=== PATIENT | male | born 1960 | race Caucasian/White ===

== ENCOUNTER 2023-09-09 13:58 | Emergency (ER) | payer MEDICAID, OTHER ==
[~2023-09-09] VITALS: Ht 190.5 cm; Wt 117.9 kg
[2023-09-09 14:36] LABS: Basophils # (auto) 0 10 ^3/uL (0-0.2); Basophils % (auto) 0.2 % (0.0-2.0); Eosinophils # (auto) 0.2 10 ^3/uL (0-0.8); Eosinophils % (auto) 1.5 % (0.0-7.0); Hematocrit 45.4 % (41.0-53.0); Lymphocytes # (auto) 3.1 10 ^3/uL (0.4-5.4); Mean Corpuscular Hemoglobin 30.2 pg (28.0-32.0); Mean Corpuscular Hgb Conc. 35.2 g/dL (32.0-36.0); Mean Corpuscular Volume 85.8 fL (80.0-100.0); Monocytes % (auto) 5.9 % (0.0-12.0); Neutrophils # (auto) 11.9 10 ^3/uL (1.6-8.6); Neutrophils % (auto) 73.4 % (37.0-80.0); Nucleated Red Blood Cells % 0.1 %; Red Blood Cells 5.29 10^6/uL (4.5-5.90); White Blood Cell 16.2 10^3/uL (4.4-10.8)
[2023-09-09 14:44] LABS: Urine Bacteria FEW /hpf (None Seen); Urine Blood 3+ /uL (Negative); Urine Clarity Ex.Turbid (Clear); Urine Color Brown (Yellow); Urine Protein, UAD 2+ (Negative); Urine Specific Gravity 1.031 (1.001-1.035); Urine Urobilinogen Normal (Negative); Urine WBC 242 /hpf (0 - 3); Urine pH 5.5 (5.0-9.0)
[2023-09-09 15:00] LABS: Alanine Aminotransferase 39 U/L (7-40); Albumin 4.8 g/dL (3.2-4.8); Alkaline Phosphatase 84 U/L (46-116); Anion Gap 7 (5-15); Aspartate Aminotransferase 17 U/L (13-40); BUN/Creatinine Ratio 16.8 (10.0-20.0); Bilirubin, Total 0.7 mg/dL (0.2-1.0); Blood Urea Nitrogen 21 mg/dL (9-23); Calcium 10.4 mg/dL (8.7-10.4); Carbon Dioxide 25 mmol/L (20-30); Chloride 107 mmol/L (98-107); Glucose 110 mg/dL (74-106); Potassium 4.3 mmol/L (3.5-5.1); Sodium 139 mmol/L (136-145)
[2023-09-09 15:04] VITALS: TEMP 97.8
[2023-09-09] MEDS: cefTRIAXone SOD 1,000 MG VL IM ONE (15:39)
[2023-09-09] MEDS ORDERED: BACDST PO (15:52)
[2023-09-09 16:11] VITALS: BP 115/80; PULSE 76; RESP 16; O2SAT 95
== END 2023-09-09 16:28 | disposition home or self-care (01) ==
LOC: ER 13:58
DX: N39.0 Urinary tract infection, site not specified (principal); N28.9 Disorder of kidney and ureter, unspecified
CPT/HCPCS: 36415; 74176; 80053; 81001; 85025; 96372; 99285; J0696

== ENCOUNTER 2024-05-01 08:12 | Inpatient (IN) | payer OTHER, MEDICAID ==
[~2024-05-01] VITALS: Ht 190.5 cm; Wt 115.2 kg
[~2024-05-01 08:12] MED LIST: BACDST PO
[2024-05-01 08:19] VITALS: PULSE 67; RESP 16; O2SAT 97
--- NOTE | 2024-05-01 09:02 | ED.PDOC ---
GI ASSESSMENT HPI Comments 64 year old male presents to the ED with chief complaint of abdominal pain. Patient reports that he has been experiencing chronic abdominal pain with associated diarrhea for the past 6 months. 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 Patient denies any nausea, vomiting, fever, chills, melena, dizziness, or dysuria. Chief Complaint: Abdominal Pain Time Seen by MD: 09:00 Primary Care Provider: [facility] Reviewed Notes: Nurses Notes, Medications, Allergies Allergies: Coded Allergies: NO KNOWN ALLERGIES (Unverified , 09/09/23) Home Meds Active Scripts Sulfamethoxazole W/Trimethopri (Bactrim Ds Tablet) 1 Tab Tb, 1 TAB PO BID for 10 Days, #20 TAB Prov:LISA PAZ 09/09/23 Information Source: Patient Mode of Arrival: Ambulatory Timing: Months Duration: Since onset Prehospital treatment: None Quality: Aching Vomitus: None Stool: Watery Severity: Moderate Recent: None Recent Hx of: None Pain Location: Diffuse Modifying Factors: Nothing Associated sign and symptoms: Diarrhea, Abdominal Pain Past Medical History PAST MEDICAL HISTORY: Kidney Stones Surgical History: Denies all surgeries Family History Family History: Reviewed,noncontributory to illness Social History Smoker: Non-Smoker Alcohol: Denies ETOH Use Drugs: Denies Drug Use Lives In: Home Constitutional: denies: chills, diaphoresis, fatigue, fever, malaise, sweats, weakness, others EENTM: denies: blurred vision, double vision, ear bleeding, ear discharge, ear drainage, ear pain, ear ringing, eye pain, eye redness, hearing loss, mouth pain, mouth swelling, nasal discharge, nose bleeding, nose congestion, nose pain, photophobia, tearing, throat pain, throat swelling, voice changes, others Respiratory: denies: cough, hemoptysis, orthopnea, SOB at rest, shortness of breath, SOB with excertion, stridor, wheezing, others Cardiovascular: denies: chest pain, dizzy spells, diaphoresis, Dyspnea on exertion, edema, irregular heart beat, left arm pain, lightheadedness, palpitations, PND, syncope, others Gastrointestinal: reports: abdominal pain, diarrhea; denies: abdomen distended, blood streaked bowels, constipated, dysphagia, difficulty swallowing, hematemesis, melena, nausea, poor appetite, poor fluid intake, rectal bleeding, rectal pain, vomiting, others Genitourinary: denies: burning, dysuria, flank pain, frequency, hematuria, incontinence, penile discharge, penile sore, pain, testicle pain, testicle swe lling, urgency, others Neurological: denies: dizziness, fainting, headache, left sided numbness, left sided weakness, numbness, paresthesia, pre-existing deficit, right sided numbness, right sided weakness, seizure, speech problems, tingling, tremors, weakness, others Musculoskeletal: denies: back pain, gout, joint pain, joint swelling, muscle pain, muscle stiffness, neck pain, others Integumetry: denies: bruises, change in color, change in hair/nails, dryness, laceration, lesions, lumps, rash, wounds, others Allergic/Immunocompromised: denies: Difficulty Healing, Frequent Infections, Hives, Itching, others Hematologic/Lymphatic: denies: anemia, blood clots, easy bleeding, easy bruising, swollen glands, others Endocrine: denies: excessive hunger, excessive sweating, excessive thirst, excessive urination, flushing, intolerance to cold, intolerance to heat, unexplained weight gain, unexplained weight loss, others Psychiatric: denies: anxiety, bipolar disorder, depression, hopeless, panic disorder, schizophrenia, sleepless, suicidal, others All Other Systems: Reviewed and Negative Physical Exam General Appearance: Moderate Distress, Normal HEENT: Normal ENT Inspection, PERRL/EOMI Neck: Full Range of Motion, Non-Tender, Normal, Normal Inspection Respiratory: Chest Non-Tender, Lungs Clear, No Accessory Muscle Use, No Respiratory Distress, Normal Breath Sounds Cardiovascular: No Edema, No JVD, No Murmur, No Gallop, Normal Peripheral Pulses, Regular Rate/Rhythm Breast Exam: Deferred Gastrointestinal: No Organomegaly, Non Tender, No Pulsatile Mass, Normal Bowel Sounds, Soft Genitalia: Deferred Pelvic: Deferred Rectal: Deferred Extremities: No calf tenderness, Normal capillary refill, Normal inspection, Normal range of motion, Non-tender, No pedal edema Musculoskeletal : Apperance: Normal Neurologic: Alert, mailroom associate II-XII nml as Tested, No Motor Deficits, Normal Affect, Normal Mood, No Sensory Deficits Cerebellar Function: Normal Reflexes: Normal Skin: Dry, Normal Color, Warm Peripheral Pulses: 3+ Radial (R), 3+ Radial (L) Lymphatic: No Adenopathy Was a procedure done? Was a procedure done?: No GI differential Dx Differential Diagnosis: Constipation, Diverticular disease, Esophagitis, Gastritis/PUD, Gastroenteritis X-Ray, Labs, Meds, VS Vital Signs Date Time Temp Pulse Resp B/P (MAP) Pulse Ox O2 Delivery O2 Flow Rate FiO2 05/01/24 08:19 67 16 97 Room Air* 0 21 05/01/24 08:19 97.9 67 16 123/83 (96) 97 97.9 05/01/24 08:19 97.9 67 16 123/83 (96) 97 97.9 Lab Test 05/01/24 09:07 05/01/24 08:46 Range/Units White Blood Count 8.7 4.4-10.8 10^3/uL Red Blood Count 5.51 4.5-5.90 10^6/uL Hemoglobin 16.7 13.5-17.5 g/dL Hematocrit 47.5 41.0-53.0 % Mean Corpuscular Volume 86.1 80.0-100.0 fL Mean Corpuscular Hemoglobin 30.2 28.0-32.0 pg Mean Corpuscular Hemoglobin Concent 35.1 32.0-36.0 g/dL Red Cell Distribution Width 13.5 11.8-14.3 % Platelet Count 197 140-450 10^3/uL Mean Platelet Volume 9.7 6.9-10.8 fL Neutrophils (%) (Auto) 61.2 37.0-80.0 % Lymphocytes (%) (Auto) 28.3 10.0-50.0 % Monocytes (%) (Auto) 7.2 0.0-12.0 % Eosinophils (%) (Auto) 2.9 0.0-7.0 % Basophils (%) (Auto) 0.4 0.0-2.0 % Neutrophils # (Auto) 5.4 1.6-8.6 10 ^3/uL Lymphocytes # (Auto) 2.5 0.4-5.4 10 ^3/uL Monocytes # (Auto) 0.6 0-1.3 10 ^3/uL Eosinophils # (Auto) 0.3 0-0.8 10 ^3/uL Basophils # (Auto) 0 0-0.2 10 ^3/uL Nucleated Red Blood Cells 0.1 % Sodium Level 142 136-145 mmol/L Potassium Level 4.4 3.5-5.1 mmol/L Chloride Level 109 H 98-107 mmol/L Carbon Dioxide Level 27 20-31 mmol/L Anion Gap 6 5-15 Blood Urea Nitrogen 12 9-23 mg/dL Creatinine 1.09 0.700-1.30 mg/dL Glomerular Filtration Rate Calc 77 >90 mL/min BUN/Creatinine Ratio 11.0 10.0-20.0 Serum Glucose 88 74-106 mg/dL Calcium Level 9.7 8.7-10.4 mg/dL Lipase Pending Urine Color Yellow Yellow Urine Clarity Clear Clear Urine pH 5.5 5.0-9.0 Urine Specific [place] 1.028 1.001-1.035 Urine Protein Negative Negative Urine Ketones Negative Negative Urine Blood Negative Negative /uL Urine Nitrite Negative Negative Urine Bilirubin Negative Negative Urine Urobilinogen Normal Negative mg/dL Urine Leukocyte Esterase Negative Negative /uL Urine RBC 1 0 - 3 /hpf Urine Microscopic WBC 3 0-3 /HPF Urine Squamous Epithelial Cells Few <5 /hpf Urine Calcium Oxalate Crystals Few None Seen Urine Bacteria None seen None Seen /hpf Urine Mucus Few None Seen Urine Glucose 3+ H Normal mg/dL Patient alert. Complaining of abdominal pain. Vitals stable. Answering questions Abdomen is soft. Possibly need colonoscopy. WBC within normal limits. Hemoglobin within normal limits. Explained to the patient. GI consultation. Continue cardiac monitoring. Time of 1ST Reevaluation: 10:00 Reevaluation 1ST: Unchanged Patient Education/Counseling: Diagnosis, Treatment Family Education/Counseling: No Family Present Additional Information Previous visit documents reviewed: 09/09/23 for UTI The following tests were ordered, and results were reviewed by me: Additional Information was gathered from interviewing the following independent historians: none I reviewed and agreed with the following test results read by other providers: I discussed treatment and results with medical personnel and: Patient Departure 1 Departure Time of Disposition: 10:59 Impression: Primary Impression: Irritable bowel syndrome Qualified Codes: K58.0 - Irritable bowel syndrome with diarrhea Additional Impression: Non-specific colitis Disposition: ADMITTED INPATIENT Admit to: Med Surg Condition: Guarded Critical Care Note Critical Care Time?: No Stability Stability form required: No Heart Score Heart Score: Heart Score Response (Comments) Value History N/A 0 EKG N/A 0 Age N/A 0 Risk Factors N/A 0 Troponin N/A 0 Total 0 I personally scribed for TR MAURO MD ([email or web address]) on 05/01/24 at 09:02. Electronically submitted by Luis E Paiz ([email or web address]). TR MAURO MD May 01, 2024 09:02
[2024-05-01 09:20] LABS: Basophils # (auto) 0 10 ^3/uL (0-0.2); Basophils % (auto) 0.4 % (0.0-2.0); Eosinophils # (auto) 0.3 10 ^3/uL (0-0.8); Eosinophils % (auto) 2.9 % (0.0-7.0); Hematocrit 47.5 % (41.0-53.0); Hemoglobin 16.7 g/dL (13.5-17.5); Lymphocytes # (auto) 2.5 10 ^3/uL (0.4-5.4); Lymphocytes % (auto) 28.3 % (10.0-50.0); Mean Corpuscular Hemoglobin 30.2 pg (28.0-32.0); Mean Corpuscular Hgb Conc. 35.1 g/dL (32.0-36.0); Mean Corpuscular Volume 86.1 fL (80.0-100.0); Monocytes # (auto) 0.6 10 ^3/uL (0-1.3); Monocytes % (auto) 7.2 % (0.0-12.0); Neutrophils # (auto) 5.4 10 ^3/uL (1.6-8.6); Neutrophils % (auto) 61.2 % (37.0-80.0); Nucleated Red Blood Cells % 0.1 %; Platelet Count (auto) 197 10^3/uL (140-450); Red Blood Cells 5.51 10^6/uL (4.5-5.90); Red Cell Distribution Width 13.5 % (11.8-14.3); White Blood Cell 8.7 10^3/uL (4.4-10.8)
[2024-05-01 09:37] LABS: Potassium 4.4 mmol/L (3.5-5.1); Sodium 142 mmol/L (136-145)
[2024-05-01 09:38] LABS: Anion Gap 6 (5-15); Carbon Dioxide 27 mmol/L (20-31)
[2024-05-01 09:39] LABS: Calcium 9.7 mg/dL (8.7-10.4)
[2024-05-01 09:43] LABS: Glucose 88 mg/dL (74-106)
[2024-05-01 09:44] LABS: Blood Urea Nitrogen 12 mg/dL (9-23); Chloride 109 mmol/L (98-107)
[2024-05-01 10:25] LABS: Urine Bacteria None Seen /hpf (None Seen)
[2024-05-01 10:38] LABS: Urine Blood Negative /uL (Negative); Urine Clarity Clear (Clear); Urine Color Yellow (Yellow); Urine Mucus FEW (None Seen); Urine Protein, UAD Negative (Negative); Urine Specific Gravity 1.028 (1.001-1.035); Urine Squamous Epithelial Cell FEW /hpf (<5); Urine Urobilinogen Normal (Negative); Urine WBC 3 /HPF (0-3); Urine pH 5.5 (5.0-9.0)
[2024-05-01 11:21] LABS: Lipase 49 U/L (12-53)
[2024-05-01] MEDS: SODIUM CHLORIDE 0.9% 1,000 ML IV ONE (12:37)
--- NOTE | 2024-05-01 12:59 | DVHCONRES ---
Date Seen: May 01, 2024 Resident Creating Document: MARISOL COVARRUBIAS RESIDENT History of Present Illness Patient is a 64-year-old male with past medical history of nephrolithiasis, dyslipidemia, type 2 diabetes, who comes in due to abdominal pain. Patient notes that for the past 6 months he has been having abdominal pain which he describes as sharp in nature, 10/10, relieved somewhat by defecation. Patient notes he experiences abdominal pain daily and it is accompanied with watery diarrhea. Of note, patient reports having lost 30 lb in the last 6 months. Smoking: Quit 8 years ago, prior to that was smoking 1-2 packs per day for 33 years Alcohol: Quit 8 years ago Drugs: Denies Past Medical History Dyslipidemia, type 2 diabetes, Nephrolithiasis Allergies: Coded Allergies: NO KNOWN ALLERGIES (Unverified , 09/09/23) Home Meds Reported Medications Atorvastatin Calcium (ATORVASTATIN CALCIUM) 10 Mg Tab, 1 TAB PO DAILY 05/01/24 Metformin Hydrochloride (Metformin Hcl) 500 Mg Tab, 1 TAB PO DAILY 05/01/24 Discontinued Scripts Sulfamethoxazole W/Trimethopri (Bactrim Ds Tablet) 1 Tab Tb, 1 TAB PO BID for 10 Days, #20 TAB Prov:LISA PAZ 09/09/23 Review of Systems Eyes: No Pain, No Vision change, No Conjunctivae inflammation, No Eyelid inflammation, No Other, No Redness ENT: No Ear pain, No Ear discharge, No Nose pain, No Nose discharge, No Nose congestion, No Mouth pain, No Mouth swelling, No Throat pain, No Throat swelling, No Other Cardiovascular: No Chest Pain, No Palpitations, No Orthopnea, No Paroxysmal No Dyspnea, No Edema, No Lt Headedness, No Other Respiratory: No Cough, No Dry, No Shortness of breath, No SOB with exertion, No Wheezing, No Hemoptysis, No Pleuritic Pain, No Sputum, No Other Gastrointestinal: No Nausea, No Vomiting, Abdominal Pain, Diarrhea, No Constipation, No Melena, No Hematochezia, No Other Genitourinary: No Dysuria, No Frequency, No Incontinence, No Hematuria, No Retention, No Other Musculoskeletal: No other, No neck pain, No shoulder pain, No arm pain, No back pain, No hand pain, No leg pain, No foot pain Skin: No Rash, No Lesions, No Jaundice, No Bruising, No Other Vital Signs Vital Signs Date Time Temp Pulse Resp B/P (MAP) Pulse Ox O2 Delivery O2 Flow Rate FiO2 05/01/24 08:19 67 16 97 Room Air* 0 21 05/01/24 08:19 97.9 123/83 (96) 97.9 Physical Exam General Appearance: Cooperative. Well developed. Well nourished. NAD Head Exam: Normal inspection Neck Exam: Normal inspection. Non-tender. Normal alignment Pulmonary/Respiratory: Chest non-tender. Clear bilateral breath sounds, no crackles, no wheezing. Cardiovascular/Chest: Regular rate and rhythm. No murmurs. No JVD. Abdominal Exam: Normal bowel sounds. Soft. normal abdomen, no visible veins, mild generalized tenderness to palpation. No hepatospenomegaly. No masses Neuro/Mental Status: A&O x4. Coherent. Thoughts/Psych: Normal thought pattern. Appropriate mood and affect. Good judgement and insight Skin Exam: Normal inspection. Normal color. Warm. Dry Labs/Diagnostic Data Labs Test 05/01/24 09:07 05/01/24 08:46 Range/Units White Blood Count 8.7 4.4-10.8 10^3/uL Red Blood Count 5.51 4.5-5.90 10^6/uL Hemoglobin 16.7 13.5-17.5 g/dL Hematocrit 47.5 41.0-53.0 % Mean Corpuscular Volume 86.1 80.0-100.0 fL Mean Corpuscular Hemoglobin 30.2 28.0-32.0 pg Mean Corpuscular Hemoglobin Concent 35.1 32.0-36.0 g/dL Red Cell Distribution Width 13.5 11.8-14.3 % Platelet Count 197 140-450 10^3/uL Mean Platelet Volume 9.7 6.9-10.8 fL Neutrophils (%) (Auto) 61.2 37.0-80.0 % Lymphocytes (%) (Auto) 28.3 10.0-50.0 % Monocytes (%) (Auto) 7.2 0.0-12.0 % Eosinophils (%) (Auto) 2.9 0.0-7.0 % Basophils (%) (Auto) 0.4 0.0-2.0 % Neutrophils # (Auto) 5.4 1.6-8.6 10 ^3/uL Lymphocytes # (Auto) 2.5 0.4-5.4 10 ^3/uL Monocytes # (Auto) 0.6 0-1.3 10 ^3/uL Eosinophils # (Auto) 0.3 0-0.8 10 ^3/uL Basophils # (Auto) 0 0-0.2 10 ^3/uL Nucleated Red Blood Cells 0.1 % Sodium Level 142 136-145 mmol/L Potassium Level 4.4 3.5-5.1 mmol/L Chloride Level 109 H 98-107 mmol/L Carbon Dioxide Level 27 20-31 mmol/L Anion Gap 6 5-15 Blood Urea Nitrogen 12 9-23 mg/dL Creatinine 1.09 0.700-1.30 mg/dL Glomerular Filtration Rate Calc 77 >90 mL/min BUN/Creatinine Ratio 11.0 10.0-20.0 Serum Glucose 88 74-106 mg/dL Calcium Level 9.7 8.7-10.4 mg/dL Lipase 49 12-53 U/L Urine Color Yellow Yellow Urine Clarity Clear Clear Urine pH 5.5 5.0-9.0 Urine Specific [place] 1.028 1.001-1.035 Urine Protein Negative Negative Urine Ketones Negative Negative Urine Blood Negative Negative /uL Urine Nitrite Negative Negative Urine Bilirubin Negative Negative Urine Urobilinogen Normal Negative mg/dL Urine Leukocyte Esterase Negative Negative /uL Urine RBC 1 0 - 3 /hpf Urine Microscopic WBC 3 0-3 /HPF Urine Squamous Epithelial Cells Few <5 /hpf Urine Calcium Oxalate Crystals Few None Seen Urine Bacteria None seen None Seen /hpf Urine Mucus Few None Seen Urine Glucose 3+ H Normal mg/dL Assessment Chronic diarrhea Accompanying abdominal pain Unintentional weight loss 30 lb History of 33-66 pack year smoking Plan: Ordered stool culture, stool WBC Ordered TSH Ordered C diff EGD tomorrow Possibly colonoscopy on Tuesday Plan discussed with Dr. Adkins Plan discussed with: Patient, Other MARCIMARISOL RESIDENT May 01, 2024 12:59
--- NOTE | 2024-05-01 14:02 | DVH ---
CLINICAL INFORMATION: 64 years old, Male; weakness. TECHNIQUE: Axial imaging was obtained through the brain without contrast. Coronal and sagittal reform atted images were obtained, reviewed, and stored. Images were reviewed in brain and bone windows. Al l CT scans at this medical facility are performed using dose modulation techniques as appropriate to a performed exam including the following: Automated exposure control was utilized; adjustment of the MA and/or KV according to patient size; and use of iterative reconstruction technique. CTDIvol = 64.7 9 mGy DLP = 2846.07 mGy-cm COMPARISON: None FINDINGS: There is no acute intracranial hemorrhage. No mass effect or midline shift. The ventricles and sulci are within normal limits in size for age. Basal cisterns are patent. The calvarium is unre markable. Paranasal sinuses and mastoid air cells are clear. IMPRESSION: No CT evidence of acute intracranial abnormality.
--- NOTE | 2024-05-01 14:10 | DVH ---
Exam: CT CT AB PEL WO CON-NO ORAL OR IV History: colitis Comparison Study: None available at time of dictation. TECHNIQUE: Multidetector CT of the abdomen was performed from lung bases to pubic symphysis. Imaging was performed without IV contrast. Axial, coronal and sagittal multiplanar reformats were obtained fr om the axial data set by the technologist. Radiation Dose Information: CT Dose: CTDI volume is 22.66 mGy. Dose-length product is 2846.07 mGy*cm FINDINGS: Evaluation of solid organs is limited due to lack of intravenous contrast use. Findings: Lung Bases: Subpleural nodule noted in the right lower lung field currently not present. May have rep resented a temporary area atelectasis. There is a 7-8 mm calcified granuloma in the right base.. Nor mal heart size. No pleural or pericardial effusion. Liver: The liver is normal in size. No focal lesions. Gallbladder and Biliary Tree: Unremarkable Spleen: Unremarkable Pancreas: The pancreas is grossly normal in appearance. No CT findings of pancreatitis. Adrenal Glands: Unremarkable Kidneys: Kidneys are grossly normal without calculi or hydronephrosis. Bladder: Grossly unremarkable for degree of distention. Bowel: The stomach is grossly normal in appearance. Small bowel and colon are normal in caliber and d istribution. The appendix is not visualized; however, no secondary findings of acute appendicitis id entified. Ascites: Absent Lymphadenopathy: No mesenteric, retroperitoneal or periportal lymphadenopathy. Abdominal Wall and Mesentery: Unremarkable. Vasculature: The visualized abdominal aorta is normal in size and caliber. Evaluation of abdominal a nd pelvic vessels is limited due to lack of intravenous contrast. Pelvic Organs: Unremarkable Musculoskeletal: No aggressive focal bony lesions, acute fractures or dislocation. Soft tissues: Unremarkable IMPRESSION: 1. No calcified gallstones. 2. No CT findings of pancreatitis 3. No CT findings of bowel obstruction 4. No nephrolithiasis or hydronephrosis Radiation optimization: All CT scans at this facility use at least one of these dose optimization te chniques: automated exposure control mA and/or kV adjustment per patient size (includes targeted exa ms where dose is matched to clinical indication) or iterative reconstruction.
[2024-05-01] MEDS ORDERED: METF-370 PO (14:43)
[2024-05-01] MEDS ORDERED: ATOR10TA52 PO (14:43)
--- NOTE | 2024-05-01 14:43 | ECG ---
[facility] Test Date: 2024-05-01 Test Time: 13:01:17 Pat Name: KANDI ROBISON Department: ER Room: 0212 Gender: M [employer]: LEYDI : 1960 Requested By: TR MAURO Order Number: [id number] Reading MD: Mp Hunter Measurements Intervals [place] Rate: 62 P: 26 IN: 172 QRS: 7 QRSD: 99 T: 40 QT: 443 QTc: 450 Interpretive Statements Sinus rhythm Low voltage, extremity and precordial leads Probable anteroseptal infarct, old Baseline wander in lead(s) II,aVF,V4 Electronically Signed On 05-02-2024 22:38:43 PDT by Mp Hunter Please click the below link to view image of tracing.
[2024-05-01] MEDS ORDERED: DOCUSATE SOD 100 MG CAP PO PRN (14:45)
[2024-05-01] MEDS: SODIUM CHLORIDE 0.9% 1,000 ML IV SCH (14:45)
[2024-05-01] MEDS ORDERED: ONDANSETRON HCL 4 MG/2 ML VIAL IV PRN (14:45)
[2024-05-01] MEDS ORDERED: DEXTROSE (50%) 50ML SYRG IV PRN (15:00)
--- NOTE | 2024-05-01 15:14 | DVHHP2 ---
History of Present Illness Reason for Visit: Abdominal pain History of Present Illness Chu Pat is a 64-year-old male with past medical history of diabetes, and hyperlipidemia who came in for abdominal pain. The patient states that he has been experiencing abdominal pain for about 6 months. He has seen his primary care provider, and has an appointment with a GI specialist next month. However, due to the increasing in pain he couldn't wait and came to the ER. Patient states he has had intermittent diarrhea for the past 6 months as well, but last night it became so severe that he wanted to come to the hospital. Cardiovascular: hyperipidemia Endocrine: Diabetes Past Surgical History: Other (right hand as a child), Tonsillectomy Smoke: No ALCOHOL: none Drugs: None Lives: Roommate Domestic Violence: Neg Review of Systems Constitutional: No: Fever, Chills, Sweats, Weakness, Malaise, Other Eyes: No: Pain, Vision change, Conjunctivae inflammation, Eyelid inflammation, Other, Redness ENT: No: Ear pain, Ear discharge, Nose pain, Nose discharge, Nose congestion, Mouth pain, Mouth swelling, Throat pain, Throat swelling, Other Respiratory: No: Cough, Dry, Shortness of breath, SOB with excertion, Wheezing, Hemoptysis, Pleuritic Pain, Sputum, Wheezing, Other Cardiovascular: No: Chest Pain, Palpitations, Orthopnea, Paroxysmal Noc. Dyspnea, Edema, Lt Headedness, Other Gastrointestinal: Abdominal Pain, Diarrhea; No: Nausea, Vomiting, Constipation, Melena, Hematochezia, Other Genitourinary: No Dysuria, No Frequency, No Incontinence, No Hematuria, No Retention, No Other Musculoskeletal: No: other, neck pain, shoulder pain, arm pain, back pain, hand pain, leg pain, foot pain Skin: No: Rash, Lesions, Jaundice, Bruising, Other Neurological: No: Weakness, Numbness, Incoordination, Change in speech, Confus ion, Seizures, Other Allergies: Coded Allergies: NO KNOWN ALLERGIES (Unverified , 09/09/23) Medications Current Medications Medications Dose Ordered Sig/Joseph Route Start Time Stop Time Status Last Admin Dose Admin Sodium Chloride 1,000 ml @ 75 mls/hr [id number] IV 05/01/24 14:45 UNV Acetaminophen/ Hydrocodone Bitart 1 tab Q4HP PRN PO 05/01/24 14:45 UNV Ondansetron HCl 4 mg Q4HP PRN IV 05/01/24 14:45 UNV Docusate Sodium 100 mg BIDPRN PRN PO 05/01/24 14:45 UNV Acetaminophen 650 mg Q6HP PRN PO 05/01/24 14:45 UNV Patient Own Medication 1 tab DAILY PO 05/02/24 10:00 UNV Exam Vital Signs Vital Signs Date Time Temp Pulse Resp B/P (MAP) Pulse Ox O2 Delivery O2 Flow Rate FiO2 05/01/24 13:01 62 05/01/24 12:43 98.0 96 146/93 (110) 98.0 05/01/24 08:19 97 Room Air* 0 21 General Appearance: Alert, Oriented X3, Cooperative, moderate distress HEENT: Atraumatic, PERRLA, Mucous membr. moist/pink Respiratory: Clear to auscultation, Normal air movement Cardiovascular: Regular rate, Normal S1, Normal S2, No murmurs Abdominal: Normal bowel sounds, Soft, No hepatospenomegaly, Other (C/O abdominal pain and diarrhea) Extremities: No clubbing, No cyanosis, No edema, Normal pulses, No tenderness/swelling Skin: No rashes, No breakdown, No significant lesion Neuro: Normal gait, Normal speech, Strength at 5/5 X4 ext, Normal tone Psych/Mental Status: Mental status NL, Mood NL Labs/Xrays Labs Test 05/01/24 09:07 05/01/24 08:46 Range/Units White Blood Count 8.7 4.4-10.8 10^3/uL Red Blood Count 5.51 4.5-5.90 10^6/uL Hemoglobin 16.7 13.5-17.5 g/dL Hematocrit 47.5 41.0-53.0 % Mean Corpuscular Volume 86.1 80.0-100.0 fL Mean Corpuscular Hemoglobin 30.2 28.0-32.0 pg Mean Corpuscular Hemoglobin Concent 35.1 32.0-36.0 g/dL Red Cell Distribution Width 13.5 11.8-14.3 % Platelet Count 197 140-450 10^3/uL Mean Platelet Volume 9.7 6.9-10.8 fL Neutrophils (%) (Auto) 61.2 37.0-80.0 % Lymphocytes (%) (Auto) 28.3 10.0-50.0 % Monocytes (%) (Auto) 7.2 0.0-12.0 % Eosinophils (%) (Auto) 2.9 0.0-7.0 % Basophils (%) (Auto) 0.4 0.0-2.0 % Neutrophils # (Auto) 5.4 1.6-8.6 10 ^3/uL Lymphocytes # (Auto) 2.5 0.4-5.4 10 ^3/uL Monocytes # (Auto) 0.6 0-1.3 10 ^3/uL Eosinophils # (Auto) 0.3 0-0.8 10 ^3/uL Basophils # (Auto) 0 0-0.2 10 ^3/uL Nucleated Red Blood Cells 0.1 % Sodium Level 142 136-145 mmol/L Potassium Level 4.4 3.5-5.1 mmol/L Chloride Level 109 H 98-107 mmol/L Carbon Dioxide Level 27 20-31 mmol/L Anion Gap 6 5-15 Blood Urea Nitrogen 12 9-23 mg/dL Creatinine 1.09 0.700-1.30 mg/dL Glomerular Filtration Rate Calc 77 >90 mL/min BUN/Creatinine Ratio 11.0 10.0-20.0 Serum Glucose 88 74-106 mg/dL Calcium Level 9.7 8.7-10.4 mg/dL Lipase 49 12-53 U/L Thyroid Stimulating Hormone (TSH) 1.10 0.55-4.78 uIU/mL Urine Color Yellow Yellow Urine Clarity Clear Clear Urine pH 5.5 5.0-9.0 Urine Specific [place] 1.028 1.001-1.035 Urine Protein Negative Negative Urine Ketones Negative Negative Urine Blood Negative Negative /uL Urine Nitrite Negative Negative Urine Bilirubin Negative Negative Urine Urobilinogen Normal Negative mg/dL Urine Leukocyte Esterase Negative Negative /uL Urine RBC 1 0 - 3 /hpf Urine Microscopic WBC 3 0-3 /HPF Urine Squamous Epithelial Cells Few <5 /hpf Urine Calcium Oxalate Crystals Few None Seen Urine Bacteria None seen None Seen /hpf Urine Mucus Few None Seen Urine Glucose 3+ H Normal mg/dL CT Head FINDINGS: There is no acute intracranial hemorrhage. No mass effect or midline shift. The ventricles and sulci are within normal limits in size for age. Basal cisterns are patent. The calvarium is unremarkable. Paranasal sinuses and mastoid air cells are clear. IMPRESSION: No CT evidence of acute intracranial abnormality. Exam: CT CT AB PEL WO CON-NO ORAL OR IV FINDINGS: Evaluation of solid organs is limited due to lack of intravenous contrast use. Findings: Lung Bases: Subpleural nodule noted in the right lower lung field currently not present. May have represented a temporary area atelectasis. There is a 7-8 mm calcified granuloma in the right base.. Normal heart size. No pleural or pericardial effusion. Liver: The liver is normal in size. No focal lesions. Gallbladder and Biliary Tree: Unremarkable Spleen: Unremarkable Pancreas: The pancreas is grossly normal in appearance. No CT findings of sevilla creatitis. Adrenal Glands: Unremarkable Kidneys: Kidneys are grossly normal without calculi or hydronephrosis. Bladder: Grossly unremarkable for degree of distention. Bowel: The stomach is grossly normal in appearance. Small bowel and colon are normal in caliber and distribution. The appendix is not visualized; however, no secondary findings of acute appendicitis identified. Ascites: Absent Lymphadenopathy: No mesenteric, retroperitoneal or periportal lymphadenopathy. Abdominal Wall and Mesentery: Unremarkable. Vasculature: The visualized abdominal aorta is normal in size and caliber. Evaluation of abdominal and pelvic vessels is limited due to lack of intravenous contrast. Pelvic Organs: Unremarkable Musculoskeletal: No aggressive focal bony lesions, acute fractures or dislocation. Soft tissues: Unremarkable IMPRESSION: 1. No calcified gallstones. 2. No CT findings of pancreatitis 3. No CT findings of bowel obstruction 4. No nephrolithiasis or hydronephrosis Assessment/Plan Assessment/Plan Assessment: Gastroenteritis, Leukocytosis, Diabetes, Hyperlipidemia, Plan: Admit to Med-Surg, GI consult, clear liquid diet, IV antibiotics, Accu checks Q AC&HS with sliding scale, Home medications reconciled, Plan discussed with: Patient My Orders Orders - MANUEL HASSAN Procedure Category Date Status Time Admit ADMIT 05/01/24 Transmitted 14:41 Code Status CODE 05/01/24 Transmitted 14:41 Sodium Chloride 0.9% PHA 05/01/24 Logged 14:45 Hydrocodone-Acet PHA 05/01/24 Logged 5/325mg Tab ([place] 14:45 Ondansetron Hcl PHA 05/01/24 Logged (Zofran) 14:45 Docusate Sodium PHA 05/01/24 Logged Capsule ([place] 14:45 Complete Blood Count LAB 05/02/24 Verified 04:00 Comprehensive LAB 05/02/24 Verified Metabolic Panel 04:00 Condition: Serious POLO 05/01/24 In Process 14:41 Acetaminophen Tablet PHA 05/01/24 Logged (Tylenol Tablet) 14:45 Clear Liq Diet DIET 05/01/24 Transmitted Dinner (Nf) Atorvastatin PHA 05/02/24 Logged Calcium 10:00 Date of Service: May 01, 2024 Billing Provider: MANUEL HASSAN Common Visit Codes: [id number] INP/OBS CARE (MOD) MANUEL HASSAN May 01, 2024 15:14
[2024-05-01] MEDS: ACCU-CHEK COMFORT CURVE STRIP VI SCH (21:05)
[2024-05-01] MEDS: InsuLIN REG 1unit/0.01ml Soln (100units/ml) SC SCH ×2 (21:05→22:00)
[2024-05-01] MEDS: cefTRIAXone 1GM/50ML D5W 50 ML IV ONE (21:05)
[2024-05-01] MEDS: metroNIDAZOLE 500MG/100ML 100 ML IV ONE (21:27)
[2024-05-01] MEDS: metroNIDAZOLE 500MG/100ML 100 ML IV SCH (22:00)
[2024-05-01] MEDS: ATORVASTATIN 20 MG TAB PO SCH (22:18)
[2024-05-02] VITALS (12 sets, daily range): BP systolic 109–157; BP diastolic 52–99; PULSE 56–85; RESP 18–20; TEMP 97.4–98; O2SAT 91–98
[2024-05-02 06:08] LABS: Basophils # (auto) 0 10 ^3/uL (0-0.2); Basophils % (auto) 0.6 % (0.0-2.0); Eosinophils # (auto) 0.4 10 ^3/uL (0-0.8); Eosinophils % (auto) 6.2 % (0.0-7.0); Hematocrit 42.6 % (41.0-53.0); Hemoglobin 15.2 g/dL (13.5-17.5); Lymphocytes # (auto) 2.9 10 ^3/uL (0.4-5.4); Lymphocytes % (auto) 40.5 % (10.0-50.0); Mean Corpuscular Hemoglobin 30.4 pg (28.0-32.0); Mean Corpuscular Hgb Conc. 35.8 g/dL (32.0-36.0); Mean Corpuscular Volume 84.9 fL (80.0-100.0); Monocytes # (auto) 0.6 10 ^3/uL (0-1.3); Monocytes % (auto) 7.7 % (0.0-12.0); Neutrophils # (auto) 3.2 10 ^3/uL (1.6-8.6); Platelet Count (auto) 160 10^3/uL (140-450); Red Blood Cells 5.01 10^6/uL (4.5-5.90); Red Cell Distribution Width 13.7 % (11.8-14.3); White Blood Cell 7.2 10^3/uL (4.4-10.8)
[2024-05-02 06:12] LABS: Alanine Aminotransferase 27 U/L (7-40); Albumin 4.1 g/dL (3.2-4.8); Alkaline Phosphatase 63 U/L (46-116); Anion Gap 6 (5-15); Aspartate Aminotransferase 15 U/L (13-40); BUN/Creatinine Ratio 12.1 (10.0-20.0); Bilirubin, Total 0.8 mg/dL (0.2-1.0); Blood Urea Nitrogen 12 mg/dL (9-23); Calcium 9.7 mg/dL (8.7-10.4); Carbon Dioxide 27 mmol/L (20-31); Glucose 97 mg/dL (74-106); Potassium 3.9 mmol/L (3.5-5.1); Sodium 140 mmol/L (136-145); Total Protein 6.3 g/dL (5.7-8.2)
[2024-05-02 06:17] LABS: Chloride 107 mmol/L (98-107)
[2024-05-02 07:10] LABS: INR 1.03 (0.9-1.15); Partial Thromboplastin Time 26.9 SEC (24.5-34.5); Prothrombin Time 10.9 sec (9.3-11.8)
--- NOTE | 2024-05-02 07:10 | DVH ---
EXAM: XR Chest, 1 View CLINICAL INDICATION: PER PROTOCOL TECHNIQUE: Frontal view of the chest. COMPARISON: None FINDINGS: LUNGS AND PLEURAL SPACES: Mild pulmonary venous congestion. No consolidation. No pneumothorax. HEART: Unremarkable. No cardiomegaly. MEDIASTINUM: Unremarkable. Normal mediastinal contour. BONES/JOINTS: Unremarkable. No acute fracture. OTHER FINDINGS: . IMPRESSION: Mild pulmonary venous congestion.
[2024-05-02] MEDS ORDERED: SODIUM CHLORIDE LOCK 10 ML ONE (07:19)
[2024-05-02] MEDS: LIDOCAINE VISCOUS 2% 15ML UD ONE (09:25)
[2024-05-02] MEDS: fentaNYL CITRATE 100 MCG/2 ML VL ONE (09:25)
[2024-05-02] MEDS: MIDAZOLAM HCL 5 MG/ML-1ML VIAL ONE (09:25)
[2024-05-02] MEDS: diphenhdrAMINE HCL 50 MG/1 ML VL ONE (09:25)
--- NOTE | 2024-05-02 09:43 | DVHOP2 ---
Operative Report DATE OF OPERATION: 05/02/24 PROCEDURE: Upper Endoscopy with biopsy. PREOPERATIVE INDICATION: The patient is a 64 -year-old male undergoing endoscopy for abdominal pain nausea vomiting POSTOPERATIVE DIAGNOSES: 1. 2 cm sliding-type hiatal hernia with grade B linear erosive esophagitis and stool two three linear ulcers at the GE junction 2. Tosh-ra-ojtjnjhu gastritis 3. Moderate duodenitis with multiple duodenal superficial ulcers and erosions PROCEDURE PERFORMED BY: Mey Adkins GI NURSE: Marleen SCOPE: Olympus videoendoscope. ASA CLASS: 2. PREOPERATIVE MEDICATIONS: Versed 2 mg, Fentanyl 50 mcg, Benadryl 50 mg I administered moderate sedation throughout this _7_ minutes procedure. An independent trained observer pushed medications at my direction, and monitored the patient's level of consciousness and physiological status throughout. PROCEDURE IN DETAIL: After obtaining an informed consent, the patient was placed on left lateral decubitus position. The patient was then sedated with the above medications. A bite block was placed between his teeth. The endoscope was then passed through the oropharynx, into the esophagus, and through the stomach and pylorus up to the second and third part of the duodenum. The endoscope was then withdrawn. The 2nd and 3rd part of the duodenal and the duodenal bulb showed moderate duodenitis. There was moderate multiple superficial duodenal ulcers in the duodenal bulb and postbulbar area. Duodenal biopsies were obtained The pre-pyloric area antrum and body showed pjqx-jd-iklhndrw gastritis. Gastric biopsies were obtained. On retroflexion the fundus and cardia were normal. The endoscope was then withdrawn into distal esophagus where the patient had a 2 cm sliding-type hiatal hernia with irregular squamocolumnar junction and grade B linear erosive esophagitis There were 2-3 linear esophageal ulcers extending to the distal esophagus for 2- 3 cm from which biopsies were obtained. The remaining distal and proximal esophagus and oropharynx were unremarkable. There was no fresh or old blood in the upper GI tract at this time. The patient tolerated the procedure well without difficulty. COMPLICATIONS : None SPECIMENS: Duodenal biopsies Gastric biopsies GE junction biopsies DISPOSITION: Transfer back to the floor Stable PLAN: 1. Await for biopsy result 2. Will place pt on Protonix 40 mg bid p.o. 3. Carafate 1 g p.o. 4 times a day 4. Resume soft mechanical diet advance as tolerated 5. Patient was also has been advised an elective colonoscopy 6. DC aspirin NSAIDs smoking alcohol MEY ADKINS MD May 02, 2024 09:43
[2024-05-02] MEDS: cefTRIAXone 1GM/50ML D5W 50 ML IV SCH (10:47)
--- NOTE | 2024-05-02 14:43 | ECG ---
[facility] Test Date: 2024-05-02 Test Time: 04:24:02 Pat Name: KANDI ROBISON Department: Room: 0212 B Gender: M Accounting Analyst: EMY : 1960 Requested By: MANUEL HASSAN Order Number: [id number] Reading MD: Mp Hunter Measurements Intervals [place] Rate: 66 P: 33 IN: 186 QRS: 3 QRSD: 99 T: 55 QT: 446 QTc: 468 Interpretive Statements Sinus rhythm Borderline low voltage, extremity leads Electronically Signed On 05-02-2024 22:28:34 PDT by Mp Hunter Please click the below link to view image of tracing.
--- NOTE | 2024-05-02 15:10 | DVHPNRES ---
Progress Note Date Seen: May 02, 2024 Resident Creating Document: PAULIE DISLA RESIDENT Has the PT tested + for MRSA If YES, has PT been informed?: No Medical Necessity Reason Pt with a Central, PICC or Fol: No Subjective Review of Systems A 64 y old male with PMHx nephrolithiasis, dyslipidemia, type 2 diabetes, with cramping abdominal pain for many months but exacrebated yesterday, relieved with defecation, also intermittent watery diarrhea, patient also states losing weight for the past 6 months Smoking: Quit 8 years ago, prior to that was smoking 1-2 packs per day for 33 years Alcohol: Quit 8 years ago Drugs: Denies Objective vital signs Vital Sign Date Time Temp Pulse Resp B/P (MAP) Pulse Ox O2 Delivery O2 Flow Rate FiO2 05/02/24 13:30 97.9 66 18 110/52 (71) 96 97.9 05/02/24 09:38 Nasal Cannula 4.0 05/02/24 08:00 21 Total Intake and Output 05/01/24 05/01/24 05/02/24 15:00 23:00 07:00 Intake Total 100 ml Balance 100 ml medications Current Medications Medications Dose Ordered Sig/Joseph Route Start Time Stop Time Status Last Admin Dose Admin Sodium Chloride 1,000 ml @ 75 mls/hr [id number] IV 05/01/24 14:45 Acetaminophen/ Hydrocodone Bitart 1 tab Q4HP PRN PO 05/01/24 14:45 Ondansetron HCl 4 mg Q4HP PRN IV 05/01/24 14:45 Docusate Sodium 100 mg BIDPRN PRN PO 05/01/24 14:45 Acetaminophen 650 mg Q6HP PRN PO 05/01/24 14:45 Atorvastatin Calcium 10 mg HS PO 05/01/24 22:00 05/01/24 22:18 10 MG Diagnostic Test (Pha) 1 strip ACHS 05/01/24 17:00 05/02/24 11:30 1 STRIP Insulin Human Regular HS SC 05/01/24 22:00 Insulin Human Regular AC SC 05/01/24 17:00 05/02/24 12:08 2 UNITS Dextrose 50 ml UD PRN IV 05/01/24 15:00 Metronidazole 100 ml @ 100 mls/hr Q8HR IV 05/01/24 22:00 05/02/24 13:43 100 MLS/HR Ceftriaxone Sodium 50 ml @ 100 mls/hr DAILY@09 IV 05/02/24 09:00 05/02/24 10:47 100 MLS/HR Sucralfate 1 gm QID@0600,1130,1700,2200 PO 05/02/24 11:30 UNV Pantoprazole Sodium 40 mg BID IV 05/02/24 10:00 UNV Examination General Appearance: Alert, Oriented X3, Cooperative, moderate distress HEENT: Atraumatic, PERRLA, Mucous membr. moist/pink Respiratory: Clear to auscultation, Normal air movement Cardiovascular: Regular rate, Normal S1, Normal S2, No murmurs Abdominal: Normal bowel sounds, Soft, No hepatospenomegaly, Other (C/O abdominal pain and diarrhea) Extremities: No clubbing, No cyanosis, No edema, Normal pulses, No tenderness/swelling Skin: No rashes, No breakdown, No significant lesion Neuro: Normal gait, Normal speech, Strength at 5/5 X4 ext, Normal tone Psych/Mental Status: Mental status NL, Mood NL laboratory and microbiology Laboratory Tests 05/02/24 05:39 Test 05/02/24 05:39 Range/Units Serum Glucose 97 74-106 mg/dL Problem List/Assessment/Plan Problem List/Assessment/Plan #Chronic diarrhea #Accompanying abdominal pain #Unintentional weight loss 30 lb #Former smoker #2 cm sliding-type hiatal hernia with grade B linear erosive esophagitis and stool two three linear ulcers at the GE junction #Sdup-ux-txjlemzc gastritis #Moderate duodenitis with multiple duodenal superficial ulcers and erosions #Diabetes IV fluids 75cc/h Now in IV AB, order ESR and CRP Protonix IV Sucralfate Moderate insluin sliding scale Atorvastatin Chest CT scan Case discussed with Dr Avila Plan discussed with: Patient, Other (rn) Date of Service: May 02, 2024 Billing Provider: ABIOLA AVILA DO Common Visit Codes: [id number] INP/OBS CARE(HIGH) PAULIE DISLA RESIDENT May 02, 2024 15:10 ABIOLA AVILA DO May 02, 2024 16:23
[2024-05-02 16:30] LABS: Erythrocyte Sedimentation Rate 2 mm/hr (0-20)
[2024-05-02] MEDS: SUCRALFATE 1 GM/10 ML ORAL SUSP PO SCH (17:00)
[2024-05-02] MEDS: PANTOPRAZOLE 40 MG/10 ML VIAL INJ IV SCH (17:01)
[2024-05-02] MEDS: ACETAMINOPHEN 325 MG TAB PO PRN (17:02)
--- NOTE | 2024-05-02 19:01 | DVH ---
Procedure: CT CHEST WITHOUT CONTRAST Reason for study/Clinical History: weight loss, former smoker Comparison Study: None available at time of dictation. Exam Date: 05/02/2024 04:07 PM TECHNIQUE: Multidetector CT of the chest was performed from the lung apices to the upper abdomen with out the use of intravenous contract. Axial, coronal and sagittal multiplanar reformats were performed . Radiation Dose Information: CT Dose: CTDI volume is 21.2 mGy. Dose-length product is 788.39 mGy*cm The dose indicators for CT are the volume Computed Tomography (CT) Dose Index (CTDIvol) and the Dose Length Product (DLP), and are measured in units of mGy and mGy-cm, respectively. These indicators are not patient dose, but values generated from the CT scanner acquisition factors. The report includes radiation exposure data for exposures received during this examination. FINDINGS: Lower neck: Normal thyroid. Lungs: Subpleural cystic and fibrotic changes in the lower lung rondon bilaterally consistent with ch ronic pulmonary disease. Small pretracheal lymph nodes are noted largest measures 10-11 mm in short a xis dimension and is located at the yandel. There is a calcified granuloma posteriorly in the right l ower lobe. There are no pulmonary masses or nodules. Heart/Vascular Structures: Normal heart size. No pericardial effusion. Lymph Nodes: No adenopathy Pleura: No pleural effusion or significant pneumothorax. Musculoskeletal: No acute osseous abnormality. Soft tissues: Normal. Upper abdomen: Limited portions of the upper abdomen are unremarkable. IMPRESSION: 1. No pulmonary nodules or masses. 2. Chronic bilateral bibasilar subpleural changes 3. Calcified granuloma right lower lobe Radiation optimization: All CT scans at this facility use at least one of these dose optimization kory hniques: automated exposure control mA and/or kV adjustment per patient size (includes targeted exam s where dose is matched to clinical indication) or iterative reconstruction.
[2024-05-02] MEDS: HYDROcodone-ACET 5/325MG TAB PO PRN (19:45)
[2024-05-03 05:00] VITALS: BP 115/75; PULSE 79; RESP 19; TEMP 97.6; O2SAT 99
[2024-05-03 06:32] LABS: Basophils # (auto) 0 10 ^3/uL (0-0.2); Basophils % (auto) 0.5 % (0.0-2.0); Eosinophils # (auto) 0.3 10 ^3/uL (0-0.8); Eosinophils % (auto) 5.2 % (0.0-7.0); Hemoglobin 14.8 g/dL (13.5-17.5); Lymphocytes # (auto) 2.4 10 ^3/uL (0.4-5.4); Lymphocytes % (auto) 38.2 % (10.0-50.0); Mean Corpuscular Hemoglobin 29.8 pg (28.0-32.0); Mean Corpuscular Hgb Conc. 34.5 g/dL (32.0-36.0); Mean Corpuscular Volume 86.5 fL (80.0-100.0); Monocytes # (auto) 0.4 10 ^3/uL (0-1.3); Monocytes % (auto) 6.5 % (0.0-12.0); Neutrophils # (auto) 3.1 10 ^3/uL (1.6-8.6); Neutrophils % (auto) 49.6 % (37.0-80.0); Nucleated Red Blood Cells % 0.1 %; Platelet Count (auto) 158 10^3/uL (140-450); Red Blood Cells 4.97 10^6/uL (4.5-5.90); Red Cell Distribution Width 13.3 % (11.8-14.3); White Blood Cell 6.2 10^3/uL (4.4-10.8)
[2024-05-03 06:56] LABS: Alanine Aminotransferase 22 U/L (7-40); Albumin 3.8 g/dL (3.2-4.8); Alkaline Phosphatase 56 U/L (46-116); Anion Gap 8 (5-15); Aspartate Aminotransferase 15 U/L (13-40); BUN/Creatinine Ratio 11.4 (10.0-20.0); Bilirubin, Total 0.6 mg/dL (0.2-1.0); Blood Urea Nitrogen 12 mg/dL (9-23); Calcium 9.4 mg/dL (8.7-10.4); Carbon Dioxide 25 mmol/L (20-31); Glucose 93 mg/dL (74-106); Potassium 4.1 mmol/L (3.5-5.1); Sodium 142 mmol/L (136-145)
[2024-05-03 07:04] LABS: Chloride 109 mmol/L (98-107); Total Protein 5.7 g/dL (5.7-8.2)
[2024-05-03 08:00] VITALS: PULSE 63; RESP 19; O2SAT 97
[2024-05-03 08:07] LABS: PSA Free 0.19 ng/mL; Prostate Specific Antigen 0.5 ng/mL (0.0-4.0)
[2024-05-03 09:00] VITALS: BP 134/78; PULSE 63; RESP 16; TEMP 98.2; O2SAT 97
[2024-05-03] MEDS: LACTULOSE 20Gm/30ML SOLN PO ONE ×2 (09:22→17:19)
--- NOTE | 2024-05-03 11:14 | DVHPN2 ---
Progress Note Date Seen: May 03, 2024 Resident Creating Document: MARISOL COVARRUBIAS RESIDENT Has the PT tested + for MRSA If YES, has PT been informed?: No Medical Necessity Reason Pt with a Central, PICC or Fol: No Subjective Review of Systems Patient is a 64-year-old male with past medical history of nephrolithiasis, dyslipidemia, type 2 diabetes, who comes in due to abdominal pain. Patient notes that for the past 6 months he has been having abdominal pain which he describes as sharp in nature, 10/10, relieved somewhat by defecation. Patient notes he experiences abdominal pain daily and it is accompanied with watery diarrhea. Of note, patient reports having lost 30 lb in the last 6 months. Patient completed EGD on 05/02/2024 which showed 2 cm sliding-type hiatal hernia with grade B linear erosive esophagitis and 2-3 linear ulcers at the GE junction. Pthg-yz-ufbawwnd gastritis. Moderate duodenitis with multiple duodenal superficial ulcers and erosions. Currently patient denies any active ongoing abdominal pain, denies any nausea or vomiting. Reports good appetite. Last bowel movement was on Tuesday. Objective vital signs Vital Sign Date Time Temp Pulse Resp B/P (MAP) Pulse Ox O2 Delivery O2 Flow Rate FiO2 05/03/24 09:00 98.2 63 16 134/78 (96) 97 98.2 05/03/24 08:00 Room Air* 0 21 Total Intake and Output 05/02/24 05/02/24 05/03/24 15:00 23:00 07:00 Intake Total 250 ml 1120 ml 300 ml Output Total 825 ml Balance 250 ml 1120 ml -525 ml medications Current Medications Medications Dose Ordered Sig/Joseph Route Start Time Stop Time Status Last Admin Dose Admin Sodium Chloride 1,000 ml @ 75 mls/hr [id number] IV 05/01/24 14:45 05/02/24 21:55 75 MLS/HR Acetaminophen/ Hydrocodone Bitart 1 tab Q4HP PRN PO 05/01/24 14:45 05/02/24 19:45 1 TAB Ondansetron HCl 4 mg Q4HP PRN IV 05/01/24 14:45 Docusate Sodium 100 mg BIDPRN PRN PO 05/01/24 14:45 Acetaminophen 650 mg Q6HP PRN PO 05/01/24 14:45 05/02/24 17:02 650 MG Atorvastatin Calcium 10 mg HS PO 05/01/24 22:00 05/02/24 21:45 10 MG Diagnostic Test (Pha) 1 strip ACHS 05/01/24 17:00 05/03/24 06:00 1 STRIP Insulin Human Regular HS SC 05/01/24 22:00 05/02/24 22:02 3 UNITS Insulin Human Regular AC SC 05/01/24 17:00 05/02/24 17:06 3 UNITS Dextrose 50 ml UD PRN IV 05/01/24 15:00 Metronidazole 100 ml @ 100 mls/hr Q8HR IV 05/01/24 22:00 05/03/24 05:57 100 MLS/HR Ceftriaxone Sodium 50 ml @ 100 mls/hr DAILY@09 IV 05/02/24 09:00 05/03/24 09:23 100 MLS/HR Sucralfate 1 gm QID@0600,1130,1700,2200 PO 05/02/24 11:30 05/03/24 05:54 1 GM Pantoprazole Sodium 40 mg BID IV 05/02/24 10:00 05/03/24 09:23 40 MG Examination General Appearance: Alert, Oriented X3, Cooperative, moderate distress HEENT: Atraumatic, PERRLA, Mucous membr. moist/pink Respiratory: Clear to auscultation, Normal air movement Cardiovascular: Regular rate, Normal S1, Normal S2, No murmurs Abdominal: Normal bowel sounds, Soft, No hepatospenomegaly, Other (C/O abdominal pain and diarrhea) Extremities: No clubbing, No cyanosis, No edema, Normal pulses, No tenderness/swelling Skin: No rashes, No breakdown, No significant lesion Neuro: Normal gait, Normal speech, Strength at 5/5 X4 ext, Normal tone Psych/Mental Status: Mental status NL, Mood NL laboratory and microbiology Laboratory Tests 05/03/24 05:04 Test 05/03/24 05:04 Range/Units Serum Glucose 93 74-106 mg/dL Labs and/or images reviewed: Labs reviewed by me, Image(s) reviewed by me Problem List/Assessment/Plan Problem List/Assessment/Plan Chronic diarrhea Accompanying abdominal pain Possible IBS Unintentional weight loss 30 lb History of 33-66 pack year smoking 2 cm hiatal hernia Erosive esophagitis Linear ulcers at the GE junction Duodenitis Multiple superficial duodenal ulcers Plan: Await biopsy results Protonix 40 mg p.o. b.i.d. Carafate 1 g p.o. q.i.d. Mechanical soft diet, advance as tolerated Awaiting stool culture, stool WBC Ordered TSH Awaiting C diff Completed EGD yesterday on 05/02/2024 Colonoscopy in the outpatient setting Discontinue aspirin, NSAIDs, smoking and alcohol Thank you so much for the opportunity to consult on your patient. GI team will follow the patient. In case of any questions or concerns please feel free to reach out. Plan discussed with Dr. Adkins Plan discussed with: Patient, Other (RN) MARISOL COVARRUBIAS RESIDENT May 03, 2024 11:14
[2024-05-03] MEDS ORDERED: DICY10CA PO (11:32)
[2024-05-03 12:57] VITALS: BP 127/86; PULSE 95; RESP 16; TEMP 97.9; O2SAT 96
--- NOTE | 2024-05-03 13:13 | DVHDSRES ---
Discharge Summary Date of Admission Resident Creating Document: MARISOL COVARRUBIAS May 01, 2024 at 14:53 Date of Discharge: May 03, 2024 Labs/Diagnostic Data: Laboratory Results Test 05/03/24 11:44 05/03/24 05:04 05/02/24 05:39 05/01/24 09:07 POC Glucose 106 mg/dl (70-106) White Blood Count 6.2 10^3/uL (4.4-10.8) Red Blood Count 4.97 10^6/uL (4.5-5.90) Hemoglobin 14.8 g/dL (13.5-17.5) Hematocrit 43.0 % (41.0-53.0) Mean Corpuscular Volume 86.5 fL (80.0-100.0) Mean Corpuscular Hemoglobin 29.8 pg (28.0-32.0) Mean Corpuscular Hemoglobin Concent 34.5 g/dL (32.0-36.0) Red Cell Distribution Width 13.3 % (11.8-14.3) Platelet Count 158 10^3/uL (140-450) Mean Platelet Volume 10.2 fL (6.9-10.8) Neutrophils (%) (Auto) 49.6 % (37.0-80.0) Lymphocytes (%) (Auto) 38.2 % (10.0-50.0) Monocytes (%) (Auto) 6.5 % (0.0-12.0) Eosinophils (%) (Auto) 5.2 % (0.0-7.0) Basophils (%) (Auto) 0.5 % (0.0-2.0) Neutrophils # (Auto) 3.1 10 ^3/uL (1.6-8.6) Lymphocytes # (Auto) 2.4 10 ^3/uL (0.4-5.4) Monocytes # (Auto) 0.4 10 ^3/uL (0-1.3) Eosinophils # (Auto) 0.3 10 ^3/uL (0-0.8) Basophils # (Auto) 0 10 ^3/uL (0-0.2) Nucleated Red Blood Cells 0.1 % Sodium Level 142 mmol/L (136-145) Potassium Level 4.1 mmol/L (3.5-5.1) Chloride Level 109 mmol/L (98-107) Carbon Dioxide Level 25 mmol/L (20-31) Anion Gap 8 (5-15) Blood Urea Nitrogen 12 mg/dL (9-23) Creatinine 1.05 mg/dL (0.700-1.30) Glomerular Filtration Rate Calc 80 mL/min (>90) BUN/Creatinine Ratio 11.4 (10.0-20.0) Serum Glucose 93 mg/dL (74-106) Calcium Level 9.4 mg/dL (8.7-10.4) Total Bilirubin 0.6 mg/dL (0.2-1.0) Aspartate Amino Transferase (AST) 15 U/L (13-40) Alanine Aminotransferase (ALT) 22 U/L (7-40) Alkaline Phosphatase 56 U/L (46-116) Total Protein 5.7 g/dL (5.7-8.2) Albumin 3.8 g/dL (3.2-4.8) Erythrocyte Sedimentation Rate 2 mm/hr (0-20) Prothrombin Time 10.9 sec (9.3-11.8) Prothrombin Time INR 1.03 (0.9-1.15) Activated Partial Thromboplast Time 26.9 SEC (24.5-34.5) C-Reactive Protein High Sensitivity 0.26 mg/dL (<1.0) Free Prostate Specific Antigen 0.19 ng/mL (N/A) Percent Free Prostate Specific Ag 38.0 % (.) Prostate Specific Antigen Total 0.5 ng/mL (0.0-4.0) Lipase 49 U/L (12-53) Thyroid Stimulating Hormone (TSH) 1.10 uIU/mL (0.55-4.78) Test 05/01/24 08:46 Urine Color Yellow (Yellow) Urine Clarity Clear (Clear) Urine pH 5.5 (5.0-9.0) Urine Specific Mathias 1.028 (1.001-1.035) Urine Protein Negative (Negative) Urine Ketones Negative (Negative) Urine Blood Negative /uL (Negative) Urine Nitrite Negative (Negative) Urine Bilirubin Negative (Negative) Urine Urobilinogen Normal mg/dL (Negative) Urine Leukocyte Esterase Negative /uL (Negative) Urine RBC 1 /hpf (0 - 3) Urine Microscopic WBC 3 /HPF (0-3) Urine Squamous Epithelial Cells Few /hpf (<5) Urine Calcium Oxalate Crystals Few (None Seen) Urine Bacteria None seen /hpf (None Seen) Urine Mucus Few (None Seen) Urine Glucose 3+ mg/dL (Normal) Other Laboratory Tests 05/03/24 05:04 Final Diagnosis/Problems List abdominal pain Discharge Disposition: Home Discharge Instruct/Medications Diet: See Comment Diet comment: soft diet Activity: Light activity 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 Patient was counseled about treatment plan, medications, possible side effects, patientverbalized understanding. All questions were answered to the best of my ability. This discharge took greater then 30 minutes in planning, reviewing documentation, counseling the patient, and discussing with other team members." ASSESSMENT ASSESSMENT Assessment abdominal pain PAULIE DISLA RESIDENT May 03, 2024 13:13
[2024-05-03 16:46] VITALS: BP 113/51; PULSE 64; RESP 16; TEMP 98.1; O2SAT 98
[2024-05-03] MEDS: SENNA 8.6 MG TAB PO ONE (17:19)
[2024-05-03] MEDS: POLYETHYLENE GLYCOL 17 GM PWDR PO ONE (17:19)
[2024-05-03 17:22] VITALS: BP 113/51; PULSE 64; RESP 16; TEMP 98.1; O2SAT 98
== END 2024-05-03 17:50 | disposition home or self-care (01) | DRG 384 ==
LOC: ER 08:12 → OVERFLOW 14:53 → CENTRAL 05-02 02:04
PROVIDERS: ADMIT Internal Medicine; ATTEND Emergency Medicine
PROC: 0DB68ZX Excision of Stomach, Via Natural or Artificial Opening Endoscopic, Diagnostic (ICD-10-PCS; 2024-05-02)
PROC: 0DB48ZX Excision of Esophagogastric Junction, Via Natural or Artificial Opening Endoscopic, Diagnostic (ICD-10-PCS; 2024-05-02)
PROC: 0DB98ZX Excision of Duodenum, Via Natural or Artificial Opening Endoscopic, Diagnostic (ICD-10-PCS; principal; 2024-05-02 09:22)
DX: K26.9 Duodenal ulcer, unspecified as acute or chronic, without hemorrhage or perforation (principal); K22.10 Ulcer of esophagus without bleeding; K52.9 Noninfective gastroenteritis and colitis, unspecified; K29.80 Duodenitis without bleeding; K29.70 Gastritis, unspecified, without bleeding; K25.9 Gastric ulcer, unspecified as acute or chronic, without hemorrhage or perforation; E11.9 Type 2 diabetes mellitus without complications; E78.5 Hyperlipidemia, unspecified; K44.9 Diaphragmatic hernia without obstruction or gangrene; Z79.899 Other long term (current) drug therapy; Z87.442 Personal history of urinary calculi; Z79.84 Long term (current) use of oral hypoglycemic drugs; Z87.891 Personal history of nicotine dependence
CPT/HCPCS: 36415; 43239; 70450; 71045; 71250; 74176; 80048; 80053; 81001; 82962; 83690; 84154; 84443; 85025; 85610; 85652; 85730; 86141; 86850; 86900; 86901; 93005; 96365; G0378; J1815; J2250; J2470; J3490